=== PATIENT | female | born 1935 | race Caucasian/White ===

== ENCOUNTER 2021-12-16 17:36 | Emergency (ER) | payer MEDICARE, MEDICAID, SELFPAY ==
[2021-12-16 18:11] VITALS: BP 159/84; PULSE 69; RESP 16; TEMP 37.1; O2SAT 95; BMI 29.2
--- NOTE | 2021-12-16 18:35 | ED_ITS ---
HPI - Dizziness General: Chief Complaint: Dizziness Stated Complaint: dizziness/weakness/diarrhea Time Seen by Provider: 12/16/21 18:20 Source: patient Mode of arrival: ambulatory Limitations: no limitations History of Present Illness: HPI Narrative: 86-year-old female states that this morning she started having vertigo. States has been having some frontal sinus pain as well and some congestion. She states that she has had vertigo for years and years and typically gets it with ear infection or sinus infection states she took a meclizine at home and her dizziness is improved denies any headache she has had some slight diarrhea but she states that is chronic in nature as well. Associated symptoms: Denies chest pain, chills, nausea or vomiting Review of Systems Const: Denies: fever(s), chills, body aches or change in appetite Eyes: Denies: blurry vision or eye discomfort ENMT: Denies: throat pain or dental pain Card: Denies: chest pain Resp: Denies: dyspnea GI: Denies: abdominal pain, nausea, vomiting or diarrhea : Denies: dysuria Musc: Denies: neck pain or back pain Skin/Breast: Denies: rash Neuro: Reports: dizziness and vertigo Psych: Denies: depression Fred/Lymph: Denies: easy bruising All/Imm: Denies: urticaria PFSH ED PFSH: Medical History (Updated 12/16/21 @ 19:28 by Jennifer Carrillo MD) Vertigo Social History (Updated 12/16/21 @ 18:37 by Jennifer Carrillo MD) Substance/Drug Use: never Physical Exam Const: COMMON NORMALS: no acute distress, patient oriented x3 and healthy appearing HENMT: COMMON NORMALS: normocephalic and atraumatic HEAD & SCALP: normocephalic and atraumatic Eye: COMMON NORMALS: Equal, round and reactive pupils present and EOMs intact bilaterally PUPIL: Yes Equal, round and reactive pupils present Neck/C-Spine: COMMON NORMALS: full ROM and supple Chest: COMMONS NORMALS: normal inspection of the chest and normal palpation of entire chest wall Resp: COMMON NORMALS: normal respiratory effort, No retractions, No use of accessory muscles and clear to auscultation bilaterally AUSCULTATION: clear to auscultation bilaterally Cardio: COMMON NORMALS: regular rate, regular rhythm and No murmurs present (Cardio) RATE: regular rate RHYTHM: regular rhythm GI: COMMON NORMALS: Normal to inspection, nondistended, normoactive bowel sounds present, Soft to palpation, non-tender and no masses PALPATION: Yes Soft to palpation Extremity: COMMON NORMALS: normal to inspection and full ROM Neuro: COMMON NORMALS: patient oriented x3, moves all extremities and no focal motor deficits Psych: COMMON NORMALS: mental status grossly normal, Normal thought process present and cooperative THOUGHT PROCESS: Normal thought process present Skin: COMMON NORMALS: no rashes or lesions noted and no wounds GENERAL SKIN EXAM: no rashes or lesions noted Course Vital Signs: Vital signs: Vital Signs Temperature 98.8 F 12/16/21 18:11 Pulse Rate 69 12/16/21 18:11 Respiratory Rate 16 12/16/21 18:11 Blood Pressure 159/84 12/16/21 18:11 Pulse Oximetry 95 12/16/21 18:11 MDM - Dizziness Medical Decision Making Patient presents here with some vertigo that is chronic in nature likely has a sinus infection as well. We will start her on cefdinir she is to continue take meclizine at home she has no signs of a stroke she is follow-up with her PCP and return if worsening she understands agrees to plan. Lab Data : 12/16/21 18:40 12/16/21 18:40 Laboratory Results WBC 4.6 10^3/uL (4.0-10.0) 12/16/21 18:40 RBC 4.87 10^6/uL (4.1-5.3) 12/16/21 18:40 Hgb 14.0 g/dL (11.5-15.3) 12/16/21 18:40 Hct 43.3 % (37.0-47.0) 12/16/21 18:40 MCV 88.9 fl (81-99) 12/16/21 18:40 MCH 28.7 pg (28.0-34.0) 12/16/21 18:40 MCHC 32.3 g/dL (30.0-36.0) 12/16/21 18:40 RDW 13.6 % (12.1-15.1) 12/16/21 18:40 Plt Count 146 10^3/cmm (130-400) 12/16/21 18:40 MPV 11.3 fL (7.4-10.4) H 12/16/21 18:40 Neut % (Auto) 49.2 % 12/16/21 18:40 Lymph % (Auto) 34.7 % 12/16/21 18:40 [place] % (Auto) 12.7 % 12/16/21 18:40 Eos % (Auto) 2.6 % 12/16/21 18:40 Baso % (Auto) 0.6 % 12/16/21 18:40 Neut # (Auto) 2.28 10^3/uL (1.8-7.7) 12/16/21 18:40 Lymph # (Auto) 1.6 10^3/uL (0.8-4.8) 12/16/21 18:40 [place] # (Auto) 0.6 10^3/uL (0.2-0.9) 12/16/21 18:40 Eos # (Auto) 0.1 10^3/uL (0.0-0.8) 12/16/21 18:40 Baso # (Auto) 0.0 10^3/uL (0.0-0.1) 12/16/21 18:40 Nucleated RBC % (auto) 0 % 12/16/21 18:40 Nucleated RBCs # 0.0 /100WBC 12/16/21 18:40 Sodium 138 mmol/L (136-145) 12/16/21 18:40 Potassium 4.3 mmol/L (3.5-5.1) 12/16/21 18:40 Chloride 103 mmol/L (98-107) 12/16/21 18:40 Carbon Dioxide 25 mmol/L (22-29) 12/16/21 18:40 Anion Gap 14.3 (5-19) 12/16/21 18:40 BUN 12 mg/dL (8-23) 12/16/21 18:40 Creatinine 0.8 mg/dL (0.5-0.9) 12/16/21 18:40 GFR Calculation Not Reportable 12/16/21 18:40 Glucose 104 mg/dL (65-115) 12/16/21 18:40 Calculated Osmolality 286 mOsm/kg (285-295) 12/16/21 18:40 Calcium 9.0 mg/dL (8.5-10.5) 12/16/21 18:40 Total Bilirubin 0.4 mg/dL (0.15-1.2) 12/16/21 18:40 AST 17 U/L (0-32) 12/16/21 18:40 ALT 12 U/L (0-33) 12/16/21 18:40 Alkaline Phosphatase 104 IU/L (35-105) 12/16/21 18:40 Total Protein 7.2 g/dL (6.6-8.7) 12/16/21 18:40 Albumin 4.3 g/dL (3.5-5.2) 12/16/21 18:40 Globulin 2.9 g/dL (1.3-4.6) 12/16/21 18:40 Discharge Plan Discharge Patient Disposition: Home Clinical Impression: Vertigo, Sinusitis Prescriptions: New cephalexin 500 mg capsule 500 mg PO TID 7 Days Qty: 21 0RF No Action propranolol 10 mg Tablet 10 mg PO TID 0RF alprazolam 0.25 mg Tablet 0.25 mg PO TID PRN (Reason: Anxiety) 0RF meclizine 25 mg Tablet 25 mg PO QID PRN (Reason: Dizziness) 0RF simvastatin 20 mg Tablet 20 mg PO DAILY 0RF lisinopril 10 mg Tablet 10 mg PO DAILY 0RF sertraline 50 mg Tablet 50 mg PO BEDTIME 0RF Discharge Orders: Discharge ED (Routine); Ordered 12/16/21 Ordered By: Jennifer Carrillo Discharge Diet: Advance as tolerated Discharge Activity: Resume usual activity Patient Instructions: Vertigo (ED) Coding Level of Care Code ED [employer] for [employer] Fwd Exam Comprehensive
[2021-12-16 18:47] LABS: Basophils % 0.6 %; Eosinophils # 0.1 10^3/uL (0.0-0.8); Eosinophils % 2.6 %; Hematocrit 43.3 % (37.0-47.0); Lymphocytes # 1.6 10^3/uL (0.8-4.8); Lymphocytes % 34.7 %; Mean Corpuscular HGB Conc 32.3 g/dL (30.0-36.0); Mean Corpuscular Hemoglobin 28.7 pg (28.0-34.0); Mean Corpuscular Volume 88.9 fl (81-99); Mean Platelet Volume 11.3 fL (7.4-10.4); Monocytes # 0.6 10^3/uL (0.2-0.9); Monocytes % 12.7 %; Neutrophils # 2.28 10^3/uL (1.8-7.7); Neutrophils % 49.2 %; Nucleated Red Blood Cells % 0 %; Platelet Count 146 10^3/cmm (130-400); Red Blood Count 4.87 10^6/uL (4.1-5.3); Red Cell Distribution Width 13.6 % (12.1-15.1); White Blood Count 4.6 10^3/uL (4.0-10.0)
[2021-12-16] MEDS: sodium chloride 0.9% 500 ML IV (19:03)
[2021-12-16 19:05] LABS: Alanine Aminotransferase 12 U/L (0-33); Albumin Level 4.3 g/dL (3.5-5.2); Alkaline Phosphatase 104 IU/L (35-105); Aspartate Amino Transferase 17 U/L (0-32); Blood Urea Nitrogen 12 mg/dL (8-23); Carbon Dioxide 25 mmol/L (22-29); Chloride 103 mmol/L (98-107); Globulin 2.9 g/dL (1.3-4.6); Glucose 104 mg/dL (65-115); Osmolality Calculated 286 mOsm/kg (285-295); Sodium 138 mmol/L (136-145); Total Bilirubin 0.4 mg/dL (0.15-1.2); Total Protein 7.2 g/dL (6.6-8.7)
[2021-12-16 19:17] LABS: Anion Gap 14.3 (5-19)
[2021-12-16 19:18] LABS: Potassium 4.3 mmol/L (3.5-5.1)
[2021-12-16 19:42] VITALS: BP 131/62; PULSE 65; RESP 16; O2SAT 96
== END 2021-12-16 19:44 | disposition home or self-care (01) ==
PROVIDERS: Emergency Provider Emergency Medicine
DX: R42 Dizziness and giddiness (principal); J32.9 Chronic sinusitis, unspecified
CPT/HCPCS: 80053; 85025; 99282; J7040